=== PATIENT | male | born 1965 | race African-American/Black ===

== ENCOUNTER 2021-11-16 18:17 | Observation (INO) ==
[2021-11-16] MEDS ORDERED: AMMONIA INHALANT 1 EACH AMP INH ONE (18:31)
[2021-11-16 19:02] LABS: Basophils # 0.1 10*3/uL (0.0-0.2); Basophils % 0.6 % (0.0-0.8); Eosinophils # 0.2 10*3/uL (0.0-0.87); Eosinophils % 2.1 % (0.00-10.9); Hematocrit 41.9 VOL% (42.0-52.0); Hemoglobin 14.2 GM/DL (14.0-18.0); Immature Granulocytes % 0.4 %; Immature Granulocytes Absolute 0.04 #; Lymphocytes # 3.4 10*3/uL (1.4-4.0); Lymphocytes % 37.9 % (21.2-54.2); Mean Corpuscular HGB Conc 33.9 GM/DL (32-36); Mean Corpuscular Volume 93.9 FL (87-102); Mean Platelet Volume 9.9 FL (9.6-12.0); Monocytes # 0.6 10*3/uL (0.11-0.8); Monocytes % 6.4 % (1.7-12.7); Neutrophils % 52.6 % (38.7-73.9); Platelet Count 256 T/CUMM (130-400); Red Blood Count 4.46 MC/CUMM (3.8-5.5); Red Cell Distribution Width 12.5 % (9.3-17.3)
[2021-11-16] MEDS ORDERED: SODIUM CHLORIDE 0.9% 1,000 ML IV STA ×2 (19:10→19:36)
[2021-11-16 19:15] LABS: Alanine Aminotransferase 23 U/L (16-61); Albumin 3.4 G/DL (3.4-5.0); Alkaline Phosphatase 59 U/L (45-117); Aspartate Amino Transferase 16 U/L (0-37); Bilirubin,Total < 0.39 MG/DL (0.20-1.00); Blood Urea Nitrogen 11 MG/DL (7-18); Calcium 7.8 MG/DL (8.5-10.1); Carbon Dioxide 20 MMOL/L (21-32); Chloride 114 MMOL/L (98-107); Glucose 116 MG/DL (74-106); Potassium 2.9 MMOL/L (3.5-5.1); Sodium 143 MMOL/L (136-145); Total Protein 6.6 G/DL (6.4-8.2)
[2021-11-16] MEDS ORDERED: SODIUM CHLORIDE 0.9% 2,000 ML IV STA (20:30)
[2021-11-16 22:40] LABS: Granular Casts,Urine 1 /LPF (0-1); Hyaline Casts,Urine 23 /LPF (0-3); Mucus,Urine Occasional /LPF (Occasional); RBC,Urine 2 /HPF (0-4); Sperm,Urine Few /HPF (Negative); Squamous Epithelial Cell,Urine Occasional /HPF (0-10)
[2021-11-16 22:41] LABS: Urine Appearance Clear (Clear); Urine Color Light Yellow (Yellow)
[2021-11-16 22:42] LABS: Bilirubin,Urine Negative (Negative); Blood, Urine Negative (Negative); Glucose,Urine (UA) Negative (Negative); Ketones,Urine Negative (Negative); Nitrite,Urine Negative (Negative); Protein,Urine Trace mg/dL (Negative); Urine Specific Gravity >= 1.030 (1.001-1.035); Urine Urobilinogen 0.2 eU/dL (<2.0)
[2021-11-16 23:06] LABS: Barbiturates Screen,Urine Negative (Negative); Benzodiazepines Screen,Urine Negative (Negative); Cannabinoid Screen,Urine Negative (Negative); Opiate Screen,Urine Negative (Negative); Phencyclidine Screen,Urine Negative (Negative)
[2021-11-17] MEDS ORDERED: ONDANSETRON 4 MG/2 ML VIAL ONE (00:23)
[2021-11-17] MEDS ORDERED: ZALEPLON 5 MG CAPSULE PO PRN (00:58)
[2021-11-17] MEDS ORDERED: NICOTINE 21 MG/24 HR PATCH TRANSDERM PRN (00:58)
[2021-11-17] MEDS ORDERED: ACETAMINOPHEN 325 MG TABLET PO PRN (00:58)
[2021-11-17] MEDS ORDERED: diphenhydrAMINE CAP 25 MG CAPSULE PO PRN (00:58)
[2021-11-17] MEDS ORDERED: DEXTROSE 10% 250 ML BAG IV PRN (00:58)
[2021-11-17] MEDS ORDERED: guaiFENesin/DM ER 600-30 MG TABLET PO PRN (00:58)
[2021-11-17] MEDS ORDERED: ONDANSETRON 4 MG/2 ML VIAL IV PRN (00:58)
[2021-11-17] MEDS ORDERED: hydrALAZINE 20 MG/1 ML VIAL IV PRN (00:58)
[2021-11-17] MEDS ORDERED: GLUCAGON 1 MG VIAL IM PRN (00:58)
[2021-11-17] MEDS ORDERED: POTASSIUM CHLORIDE 20 MEQ TABLET PO ONE (01:11)
[2021-11-17] MEDS ORDERED: SODIUM CHLOR 0.9% KCL 40 MEQ 40 MEQ/1,000 ML BAG IV SCH (01:30)
[2021-11-17 05:04] LABS: Basophils % 0.2 % (0.0-0.8); Hematocrit 43.3 VOL% (42.0-52.0); Hemoglobin 14.1 GM/DL (14.0-18.0); Immature Granulocytes % 0.4 %; Immature Granulocytes Absolute 0.05 #; Lymphocytes # 1.1 10*3/uL (1.4-4.0); Lymphocytes % 9.5 % (21.2-54.2); Mean Corpuscular HGB Conc 32.6 GM/DL (32-36); Mean Corpuscular Volume 97.5 FL (87-102); Mean Platelet Volume 10.8 FL (9.6-12.0); Monocytes # 0.7 10*3/uL (0.11-0.8); Monocytes % 6.3 % (1.7-12.7); Neutrophils % 83.6 % (38.7-73.9); Platelet Count 202 T/CUMM (130-400); Red Blood Count 4.44 MC/CUMM (3.8-5.5); Red Cell Distribution Width 12.6 % (9.3-17.3); White Blood Count 11.2 T/CUMM (4-12)
[2021-11-17 05:47] LABS: Alanine Aminotransferase 24 U/L (16-61); Albumin 3.5 G/DL (3.4-5.0); Alkaline Phosphatase 62 U/L (45-117); Aspartate Amino Transferase 21 U/L (0-37); Bilirubin,Total < 0.39 MG/DL (0.20-1.00); Blood Urea Nitrogen 12 MG/DL (7-18); Carbon Dioxide 17 MMOL/L (21-32); Chloride 113 MMOL/L (98-107); Glucose 82 MG/DL (74-106); Osmolality,Calculated 273.7 MOS/KG (273-304); Potassium 4.3 MMOL/L (3.5-5.1); Sodium 138 MMOL/L (136-145)
[2021-11-17] MEDS ORDERED: LACTATED RINGERS 1,000 ML IV SCH (08:00)
[2021-11-17] MEDS: PANTOPRAZOLE 40 MG TABLET PO SCH (09:54)
[2021-11-17] MEDS: MULTIVITAMIN (CENTRUM) TABLET PO SCH (09:55)
[2021-11-17] MEDS: HEPARIN 5,000 UNIT/1 ML VIAL SUBCUT SCH ×2 (09:55→22:34)
[2021-11-17] MEDS: FOLIC ACID 1 MG TABLET PO SCH ×2 (09:55→22:34)
[2021-11-17] MEDS: THIAMINE 100 MG TABLET PO SCH ×2 (09:55→22:34)
[2021-11-18 06:15] LABS: Calcium 8.6 MG/DL (8.5-10.1); Osmolality,Calculated 277.4 MOS/KG (273-304)
[2021-11-18] MEDS: PANTOPRAZOLE 40 MG TABLET PO SCH (10:09)
[2021-11-18] MEDS: MULTIVITAMIN (CENTRUM) TABLET PO SCH (10:09)
[2021-11-18] MEDS: THIAMINE 100 MG TABLET PO SCH (10:09)
[2021-11-18] MEDS: FOLIC ACID 1 MG TABLET PO SCH (10:09)
[2021-11-18] MEDS: HEPARIN 5,000 UNIT/1 ML VIAL SUBCUT SCH (10:09)
[2021-11-18 12:42] VITALS: BP 141/88
== END 2021-11-18 15:30 | disposition home or self-care (01) ==
LOC: EDUNIT# → EDBD → N.ED 18:17 → N.TELES 18:17 → SUATTDRO 11-17 00:58 → N.TELES 11-17 03:20
PROVIDERS: ADMIT Internal Medicine; ATTEND Internal Medicine